=== PATIENT | female | born 1975 | race Caucasian/White ===

== ENCOUNTER 2019-09-07 04:38 | Inpatient (IN) ==
[2019-09-01 17:24] LABS: Appearance,Urine CLEAR; Bilirubin,Urine NEG (NEG); Color,Urine STRAW; Culture Indicated,Urine NO; Glucose,Urine (UA) NEGATIVE (NEG); Ketones,Urine 20 mg/dL (NEG); Leukocyte Esterase,Urine NEG /uL (NEG); Nitrate,Urine NEG (NEG); Protein,Urine NEG (NEG); Specific Gravity,Urine 1.009 (1.000-1.035); Urine Blood NEG mg/dL (<0.03); Urobilinogen,Urine NEG (NEG)
[2019-09-01 17:28] LABS: Blood Urea Nitrogen 13 mg/dl (6-20); Calcium 9.5 mg/dl (8.6-10.4); Carbon Dioxide 20 mmol/L (22-30); Chloride 98 mmol/L (96-108); Glomerular Filtration Rate 109; Glucose 97 mg/dL (70-105)
[2019-09-01 17:31] LABS: Basophils # (Auto) 0 K/mcL (0.0-0.3); Basophils % (Auto) 0.3 % (0.0-2.0); Eosinophils # (Auto) 0.1 K/mcL (0.0-0.7); Eosinophils % (Auto) 1.2 % (0.0-7.0); Granulocytes % (Auto) 56.4 % (38.0-78.0); Hematocrit 46.5 % (36.0-48.0); Hemoglobin 15.6 g/dL (12.0-15.0); Lymphocytes # (Auto) 4.3 K/mcL (1.5-4.8); Mean Cell Volume 94.1 fL (80.0-100.0); Mean Corpuscular HGB Conc 33.6 g/dL (31.0-36.0); Mean Platelet Volume 8.2 fL (7.4-10.4); Monocytes # (Auto) 0.7 K/mcL (0.1-0.9); Monocytes % (Auto) 6.1 % (1.0-12.0); Platelet Count 451 K/mcL (140-440); RBC 4.94 M/mcL (4.00-5.20); Red Cell Distribution Width 14.3 % (11.5-14.5); WBC 11.8 K/mcL (4.5-11.0)
[2019-09-01 17:36] LABS: Prothrombin Time 13.2 sec (11.9-14.5)
[2019-09-07] MEDS ORDERED: IPRATROPIUM/ALBUTEROL 3 ML AMPUL.NEB NEB PRN ×2 (05:00→09:02)
[2019-09-07] MEDS ORDERED: SCOPOLAMINE 1 PATCH PATCH TOPICAL PRN (05:00)
[2019-09-07] MEDS ORDERED: 0.9 % SODIUM CHLORIDE 9 ML, KETOROLAC 30 MG, ROPIVACAINE HCL/PF 49.5 ML, EPINEPHrine 0.... IJ SCH (06:00)
[2019-09-07] MEDS ORDERED: oxyCODONE 10 MG TAB.ER.12H PO SCH (06:00)
[2019-09-07] MEDS ORDERED: ACETAMINOPHEN 500 MG TABLET PO SCH (06:00)
[2019-09-07] MEDS ORDERED: PREGABALIN 150 MG CAPSULE PO SCH (06:00)
[2019-09-07] MEDS ORDERED: ceFAZolin 2 GM in DEXTROSE 5% IN WATER 50 ML IV SCH (06:00)
[2019-09-07] MEDS ORDERED: DEXAMETHASONE 10 MG/ML VIAL IV ONE (07:25)
[2019-09-07] MEDS ORDERED: ONDANSETRON 4 MG/2 ML VIAL IV ONE (07:25)
[2019-09-07] MEDS ORDERED: TRANEXAMIC ACID 1,000 MG/10 ML VIAL IV ONE ×3 (07:25→10:37)
[2019-09-07] MEDS ORDERED: MIDAZOLAM 5 MG/5 ML VIAL IV ONE (07:25)
[2019-09-07] MEDS ORDERED: LIDOCAINE HCL/PF 100 MG/5 ML SYRINGE IV ONE (07:25)
[2019-09-07] MEDS ORDERED: PROPOFOL 200 MG/20 ML VIAL IV ONE (07:25)
[2019-09-07] MEDS ORDERED: GENTAMICIN SULFATE 800 MG/20 ML VIAL IR ONE (07:55)
[2019-09-07] MEDS ORDERED: ONDANSETRON 4 MG/2 ML VIAL IV PRN ×2 (09:02→10:16)
[2019-09-07] MEDS ORDERED: BENZOCAINE/MENTHOL 1 LOZENGE PO PRN ×2 (09:02→10:16)
[2019-09-07] MEDS ORDERED: NALOXONE HCL 0.4 MG/ML VIAL IV PRN (09:02)
[2019-09-07] MEDS ORDERED: LACTATED RINGERS 250 ML IV PRN (09:02)
[2019-09-07] MEDS ORDERED: PROMETHAZINE 25 MG/ML VIAL IV PRN (09:02)
[2019-09-07] MEDS ORDERED: diphenhydrAMINE 50 MG/ML VIAL IV PRN (09:02)
[2019-09-07] MEDS ORDERED: FLUMAZENIL 0.1 MG/ML ML IV PRN (09:02)
[2019-09-07] MEDS ORDERED: MEPERIDINE 25 MG/ML SYRINGE IV PRN (09:02)
[2019-09-07] MEDS ORDERED: LACTATED RINGERS 1,000 ML IV SCH (09:15)
[2019-09-07] MEDS: fentaNYL 100 MCG/2 ML VIAL IV PRN ×4 (10:05→10:22)
[2019-09-07] MEDS ORDERED: BUTALB/ACETAMINOPHEN/CAFFEINE 1 TABLET PO PRN (10:14)
[2019-09-07] MEDS ORDERED: ALBUTEROL SULFATE 1 PUFF INHALER INH PRN (10:14)
[2019-09-07] MEDS ORDERED: MAGNESIUM HYDROXIDE 30 ML ORAL.SUSP PO PRN (10:16)
[2019-09-07] MEDS ORDERED: POLYETHYLENE GLYCOL 3350 17 GM PACKET PO PRN (10:16)
[2019-09-07] MEDS ORDERED: BISACODYL 10 MG SUPP.RECT PR PRN (10:16)
[2019-09-07] MEDS ORDERED: TEMAZEPAM 15 MG CAPSULE PO PRN (10:16)
[2019-09-07] MEDS ORDERED: ACETAMINOPHEN 325 MG TABLET PO PRN (10:16)
[2019-09-07] MEDS ORDERED: FLEETS ADULT ENEMA PR PRN (10:16)
--- NOTE | 2019-09-07 10:33 | Operative Note ---
DATE OF OPERATION: 09/07/2019 PREOPERATIVE DIAGNOSIS: Right knee degenerative arthritis. POSTOPERATIVE DIAGNOSIS: Right knee degenerative arthritis. PROCEDURE: Right total knee arthroplasty with hardware removal. SURGEON: Shlomo Fierro M.D. STATE PILOT: Juan Ramos PA-C. The PA's assistance was required for the safe and efficient completion of the entire case. This provider's expertise and technical skill were required throughout the case. The PA assisted with preoperative coordination, intraoperative retraction, wound closure, dressing and splint application, as well as postoperative documentation and care coordination. ESTIMATED BLOOD LOSS: About 50 mL. TOTAL TOURNIQUET TIME: 72 minutes. COMPLICATIONS: None. IMPLANTS: Harrold components. DESCRIPTION OF PROCEDURE: The patient was brought to the operating room and put to sleep with general LMA anesthesia. Once asleep, the patient had the right leg sterilely prepped and draped in the usual sterile fashion. A timeout was performed. We confirmed this as the operative site. Once this was confirmed, we were able to proceed with the case. We made a midline incision, midvastus approach performed. Through this, we were able to identify severe arthritis and traumatic arthritis of the medial compartment. Hardware was removed. This required eight screw removals. This was seven screws within the plate and the plate itself, as well as one long cannulated screw. Once this was removed after exposing the implants, we placed in the pins; two pins above and below the knee. We registered the center of hip rotation with the arrays. Intraarticular pins were registered. Thirty points on the femur and thirty points on the tibia were registered. Once all registered, the robot was brought in, and we made the bony cuts according to the preoperative plan. This fit very nicely. We then prepared the surfaces of the femur, the tibia and the patella. All three surfaces were resurfaced, both with the tibial component and femoral component and polyethylene. The patella tracked perfectly. The knee balanced perfectly. We irrigated thoroughly and removed any excess cement. The polyethylene liner was a 9 mm liner. This fit very well. This was a deep dish just to support the posterior cruciate ligament, and the patient tolerated this well. We irrigated thoroughly and deflated the tourniquet at 72 minutes. We controlled any bleeding and then closed the midvastus approach with #1 Stratafix. Once done, we closed the skin with 2-0 Vicryl and svitlana. The patient tolerated this well. There was no complication. Sterile bandage was applied. RBH:hans Job ID: [id number] Doc ID: [id number] Shlomo Fierro MD
--- NOTE | 2019-09-07 10:46 | XRay Report ---
CLINICAL INFORMATION: post op COMPARISON: None. FINDINGS: Total knee prostheses is anatomically aligned. No osseous abnormality. Periarticular gas and soft tissue swelling seen. IMPRESSION: Negative Interpreted and Authenticated by: Urban Thomson 09/07/19
[2019-09-07] MEDS: HYDROcodone/APAP 10/325MG TABLET PO PRN ×4 (11:11→23:45)
[2019-09-07] MEDS: BACLOFEN 10 MG TABLET PO PRN (11:12)
[2019-09-07] MEDS: KETOROLAC 15 MG/ML VIAL IV SCH ×3 (11:12→23:45)
[2019-09-07] MEDS: LACTATED RINGERS 1,000 ML IV SCH ×2 (11:13→19:40)
[2019-09-07] MEDS ORDERED: NICOTINE 14 MG PATCH TOPICAL ONE (12:17)
[2019-09-07] MEDS: HYDROmorphone 2 MG/ML VIAL IV PRN ×4 (13:13→21:06)
[2019-09-07] MEDS: clonazePAM 1 MG TABLET PO PRN ×2 (13:46→21:03)
[2019-09-07] MEDS: 0.9 % SODIUM CHLORIDE 10 ML SYRINGE IV SCH ×2 (14:36→21:07)
[2019-09-07] MEDS: PREGABALIN 150 MG CAPSULE PO SCH ×2 (15:14→21:04)
[2019-09-07] MEDS: ceFAZolin 1 GM VIAL IV SCH ×2 (15:17→23:44)
--- NOTE | 2019-09-07 18:36 | Brief Operative Note ---
Date of procedure: 09/07/19 Pre-op diagnosis: Right knee djd Post-op diagnosis: same Procedure: right tka with robot Grafts/Implants: Yes Anesthesia: KANNAN Surgeon: Shlomo Fierro Coordinator Skill Training Program: Juan Ramos Estimated blood loss (cc): 50 Tourniquet Time (Minutes): 72 Specimens Removed/Pathology: none sent Condition: stable Disposition: PACU
[2019-09-07] MEDS ORDERED: CETIRIZINE 10 MG TABLET PO SCH (21:00)
[2019-09-07] MEDS ORDERED: SENNOSIDES 1 TABLET PO SCH (21:00)
[2019-09-07] MEDS: ASPIRIN 325 MG ENTERIC COATED TABLET PO SCH (21:03)
[2019-09-07] MEDS: DOCUSATE SODIUM 100 MG CAPSULE PO SCH (21:04)
[2019-09-08] MEDS: HYDROmorphone 2 MG/ML VIAL IV PRN ×3 (02:06→11:01)
[2019-09-08] MEDS: HYDROcodone/APAP 10/325MG TABLET PO PRN ×3 (03:54→12:01)
[2019-09-08] MEDS: KETOROLAC 15 MG/ML VIAL IV SCH ×2 (06:52→11:01)
[2019-09-08] MEDS: BACLOFEN 10 MG TABLET PO PRN (06:53)
[2019-09-08] MEDS: 0.9 % SODIUM CHLORIDE 10 ML SYRINGE IV SCH (06:58)
[2019-09-08] MEDS: PREGABALIN 150 MG CAPSULE PO SCH (07:52)
[2019-09-08] MEDS: ASPIRIN 325 MG ENTERIC COATED TABLET PO SCH (07:52)
[2019-09-08] MEDS: DOCUSATE SODIUM 100 MG CAPSULE PO SCH (07:52)
--- NOTE | 2019-09-08 07:54 | Discharge Summary ---
Ortho Discharge - TKA - Patient Instructions Diet: Regular Diet Activity: activity as tolerated, weight bearing as tolerated Total Knee Protocol: For Total Knee: Start ROM WADE with stationary bike or rocking chair. Work on gaining full extension of knee. Posterior dislocation precautions provided. Hip abductor strengthening and gait training instructions provided. Apply Cryocuff as instructed. Dressing Care: May shower in 2 days - Follow Up Plan Disposition: Home, Self-Care Prognosis: Good Rehab Potential: Good I certify that the patient requires SNF services: No Overall status at discharge: patient is progressing back to baseline - Orders For Discharge Prescriptions: HYDROcodone/APAP 10/325MG [Cecil 10-325Mg] 10 - 20 mg PO Q4HP PRN #60 tab PRN Reason: Pain Level 3-6 Prescription Printed
--- NOTE | 2019-09-08 08:01 | Discharge Summary ---
Ortho Discharge - TKA - Patient Instructions Diet: Regular Diet Activity: activity as tolerated, weight bearing as tolerated Total Knee Protocol: For Total Knee: Start ROM WADE with stationary bike or rocking chair. Work on gaining full extension of knee. Posterior dislocation precautions provided. Hip abductor strengthening and gait training instructions provided. Apply Cryocuff as instructed. - Follow Up Plan Disposition: Home, Self-Care Prognosis: Good Rehab Potential: Good I certify that the patient requires SNF services: No - Orders For Discharge Prescriptions: HYDROcodone/APAP 10/325MG [Grafton 10-325Mg] 10 - 20 mg PO Q4HP PRN #60 tab PRN Reason: Pain Level 3-6 Prescription Printed Additional Discharge Orders: Physical Therapy at Discharge - TKA Location: None Selected CPM Discharge Order Location: None Selected Toilet Riser Discharge Order Location: None Selected Walker Location: None Selected
[2019-09-08] MEDS ORDERED: LORATADINE 10 MG TABLET PO SCH (09:00)
[2019-09-08] MEDS ORDERED: FLU VACC QS2019-20(6MOS UP)/PF 60 MCG/0.5 ML SYRINGE IM ONE (10:00)
[2019-09-08] MEDS: clonazePAM 1 MG TABLET PO PRN (10:51)
== END 2019-09-08 15:00 | disposition home or self-care (01) | DRG 470 ==
LOC: MEDSUR 04:38
PROVIDERS: ADMIT Orthopaedic Surgery; ATTEND Orthopaedic Surgery